=== PATIENT | male | born 1965 | race Caucasian/White ===

== ENCOUNTER 2017-01-10 14:38 | Observation (INO) | payer OTHER ==
[~2017-01-10] VITALS: Ht 180.3 cm; Wt 100.8 kg
[2017-01-10] MEDS ORDERED: SODIUM CHLORIDE 0.9% 1000ML 1,000 ML IV STA (15:08)
--- NOTE | 2017-01-10 15:09 | EMERGENCY ROOM VISIT NOTE ---
History Report prepared by Niranjan: Joe Welch Under the Supervision of: Dr. Red Nixon M.D. First contact with patient: 14:54 Chief Complaint: SYNCOPE Stated Complaint: SYNCOPE/WEAKNESS History of Present Illness The patient is a 51 year old male who presents to the Emergency Room with complaints of weakness and syncope occurring prior to arrival. The patient states that he was having a little bit of alcohol, Benadryl, and Tagamet. The patient states that he hit his head when he fell. He states that he has a hive- like rash additionally all over. The patient states that this has happened before when he was playing tennis in the cold and he passed out, and had low blood pressure. He states that he currently feels light headed and he is shivering. The patient denies any abdominal pain. He states that he has a history of hypertension, and a family history of a heart attack. Source of History: patient Onset: prior to arrival Position: other (global) Quality: other (weakness and syncope) Associated Symptoms: + rash Note: Associated symptoms: Light headed and shivering Review of Systems See HPI for pertinent positives & negatives. A total of 10 systems reviewed and were otherwise negative. Past Medical & Surgical Medical Problems: (1) Hyperlipidemia (2) Hypertension (3) Hypertension (4) Syncope Surgical Problems: (1) No significant past surgical history Family History FH: heart attack Social History Marital Status: Housing Status: lives with family Occupation Status: employed Current/Historical Medications Scheduled Fenofibrate (Tricor ), 145 MG PO DAILY Hydrochlorothiazide (Hctz), 25 MG PO DAILY Lisinopril (Zestril), 5 MG PO DAILY Allergies Coded Allergies: Penicillins (Verified Allergy, Unknown, HIVES, 01/10/17) Physical Exam Vital Signs Date Time Temp Pulse Resp B/P Pulse Ox O2 Delivery O2 Flow Rate FiO2 01/10/17 19:40 81 16 109/76 100 01/10/17 17:19 86 18 104/72 99 Room Air 01/10/17 16:30 36.7 86 20 112/74 99 Room Air 01/10/17 16:28 82 01/10/17 15:40 86 18 107/77 100 Nasal Cannula 2.0 01/10/17 15:01 99 Nasal Cannula 2.0 01/10/17 14:55 98 Nasal Cannula 2.0 2/25/17 14:42 35.9 83 22 94/58 88 Room Air Physical Exam GENERAL: Patient is tired appearing and in minimal distress. HEENT: No tongue or lip swelling. No acute trauma, normocephalic atraumatic, mucous membranes moist, no nasal congestion, no scleral icterus. NECK: No stridor, no adenopathy, no meningismus, trachea is midline. LUNGS: No respiratory distress. No dyspnea. Clear to auscultation and equal bilaterally. No wheeze, no rhonchi. HEART: Regular rate and rhythm. No murmurs, rubs, gallops appreciated. ABDOMEN: Soft, nontender, bowel sounds positive, no masses appreciated, no peritonitis. BACK: No midline tenderness, no CVA tenderness EXTREMITIES: Cool distal extremities. Normal motion all extremities, no cyanosis , no edema. NEUROLOGIC: Alert and oriented, no acute motor or sensory deficits, no focal weakness, cranial nerves grossly intact. SKIN: Hives over the anterior upper chest. Medical Decision & Procedures ER Provider Diagnostic Interpretation: X ray results and stated below per my interpretation and radiologist interpretation. Other radiology results and stated below per my review and radiologist interpretation: CT HEAD WITHOUT CONTRAST (CT) CLINICAL HISTORY: 61, generalized weakness. COMPARISON STUDY: No previous studies for comparison. TECHNIQUE: Axial CT of the brain is performed from the vertex to the skull base. IV contrast was not administered for this examination. CT DOSE: 614.27 mGy.cm FINDINGS: No intra or extra-axial mass lesions are visualized. There is no CT evidence of acute cortical infarction. There is no evidence of midline shift. There is no acute hemorrhage. No calvarial fractures are visualized. There is no evidence of pathologic ventricular dilatation. There is no evidence of acute sinusitis IMPRESSION: No acute intracranial findings Electronically signed by: Rahul Maldonado M.D. 01/10/2017 3:36 PM Dictated Date/Time: 01/10/2017 3:34 PM CHEST ONE VIEW PORTABLE CLINICAL HISTORY: Generalized Weakness COMPARISON STUDY: No previous studies for comparison. FINDINGS: The cardiac and mediastinal contours are normal. There is no evidence of focal pulmonary consolidation. There is no evidence of failure. No pleural effusions are visualized.[ IMPRESSION: No active disease in the chest. Electronically signed by: Rahul Maldonado M.D. 01/10/2017 3:47 PM Dictated Date/Time: 01/10/2017 3:[address] ANGIOGRAM OF THE CHEST CLINICAL HISTORY: Atypical chest pain. SYNCOPE COMPARISON STUDY: Chest x-ray dated 01/10/2017 TECHNIQUE: Following the IV administration of 92 mL of Optiray-320, CT angiogram of the thorax was performed from the thoracic inlet to the lung bases utilizing the pulmonary embolus protocol. Images are reviewed in the axial, sagittal, and coronal planes. IV contrast was administered without complication. MIP imaging was performed. CT DOSE: 490.58 mGy.cm FINDINGS: No pathologically enlarged axillary mediastinal or hilar lymph nodes were visualized. There was no evidence of thoracic aortic dilatation. There is no evidence of thoracic aortic dissection. There were no pulmonary artery filling defects to indicate acute pulmonary embolism. No pleural effusions are visualized. There are dependent groundglass opacities likely atelectatic. There is no lobar consolidation. IMPRESSION: 1. No acute intrathoracic findings 2. No CT evidence of acute pulmonary embolism 3. No CT evidence of aortic dissection 3. No evidence of focal pulmonary consolidation Electronically signed by: Rahul Maldonado M.D. 01/10/2017 5:41 PM Dictated Date/Time: 01/10/2017 5:37 PM Laboratory Results 01/10/17 15:00 Red Blood Count 5.14, Mean Corpuscular Volume 89.3, Mean Corpuscular Hemoglobin 30.5, Mean Corpuscular Hemoglobin Concent 34.2, Mean Platelet Volume 12.1 01/10/17 15:00 Test 01/10/17 14:46 01/10/17 15:00 01/10/17 15:10 01/10/17 15:15 Bedside Glucose 120 mg/dl (70-99) White Blood Count 5.40 K/uL (4.8-10.8) Red Blood Count 5.14 M/uL (4.7-6.1) Hemoglobin 15.7 g/dL (14.0-18.0) Hematocrit 45.9 % (42-52) Mean Corpuscular Volume 89.3 fL (80-100) Mean Corpuscular Hemoglobin 30.5 pg (25-34) Mean Corpuscular Hemoglobin Concent 34.2 g/dl (32-36) Platelet Count 273 K/uL (130-400) Mean Platelet Volume 12.1 fL (7.4-10.4) RDW Standard Deviation 39.9 fL (36.4-46.3) RDW Coefficient of Variation 12.3 % (11.5-14.5) Neutrophils % (Manual) 20.5 % Lymphocytes % (Manual) 28.6 % Variant Lymphocytes % (manual) 44.6 % Monocytes % (Manual) 6.3 % Neutrophils # (Manual) 1.11 K/uL (1.4-6.5) Total Absolute Neutrophils 1.11 K/uL (1.4-6.5) Lymphocytes # (Manual) 1.54 K/uL (1.2-3.4) Absolute Variant Lymphocytes 2.41 K/uL Total Absolute Lymphocytes 3.95 K/uL (1.2-3.4) Monocytes # (Manual) 0.34 K/uL (0.11-0.59) Red Blood Cell Morphology Unremarkable Anion Gap 19.0 mmol/L (3-11) Est Creatinine Clear Calc Drug Dose 66.7 ml/min Estimated GFR () 57.4 Estimated GFR (Non- 49.5 BUN/Creatinine Ratio 12.3 (10-20) Calcium Level 8.7 mg/dl (8.5-10.1) Phosphorus Level 4.7 mg/dl (2.5-4.9) Magnesium Level 2.1 mg/dl (1.8-2.4) Total Bilirubin 0.2 mg/dl (0.2-1) Direct Bilirubin mg/dl (0-0.2) Aspartate Amino Transf (AST/SGOT) 25 U/L (15-37) Alanine Aminotransferase (ALT/SGPT) 53 U/L (12-78) Alkaline Phosphatase 34 U/L (45-117) Total Creatine Kinase 89 U/L (39-308) Creatine Kinase MB 0.8 ng/ml (0.5-3.6) Creatine Kinase MB Ratio 0.9 (0-3.0) Troponin I < 0.015 ng/ml (0-0.045) Total Protein 6.8 gm/dl (6.4-8.2) Albumin 3.5 gm/dl (3.4-5.0) Lipase 272 U/L (73-393) Thyroid Stimulating Hormone (TSH) 11.500 uIu/ml (0.300-4.500) Free Thyroxine 1.14 ng/dl (0.80-1.60) Chemistry Specimen Hemolysis Ethyl Alcohol mg/dL 10.0 mg/dl (0-3) Urine Color YELLOW Urine Appearance CLEAR (CLEAR) Urine pH 5.0 (4.5-7.5) Urine Specific [place] 1.011 (1.000-1.030) Urine Protein 1+ (NEG) Urine Glucose (UA) NEG (NEG) Urine Ketones NEG (NEG) Urine Occult Blood NEG (NEG) Urine Nitrite NEG (NEG) Urine Bilirubin NEG (NEG) Urine Urobilinogen NEG (NEG) Urine Leukocyte Esterase NEG (NEG) Urine WBC (Auto) 1-5 /hpf (0-5) Urine RBC (Auto) 0-4 /hpf (0-4) Urine Hyaline Casts (Auto) 10-30 /lpf (0-5) Urine Epithelial Cells (Auto) 10-20 /lpf (0-5) Urine Bacteria (Auto) NEG (NEG) Urine Pathogenic Casts /lpf (0) Test 01/10/17 17:15 01/10/17 18:17 Bedside D-Dimer > 450 ng/mlFEU (0-450) Bedside Troponin I 0.040 ng/ml (0-0.045) Laboratory results as reviewed by me. Medications Administered Medications (Trade) Dose Ordered Sig/Bill Route Start Time Stop Time Status Last Admin Dose Admin Sodium Chloride (Nss 1000ml) 1,000 ml @ 999 mls/hr Q1H1M STAT IV 01/10/17 15:08 01/10/17 16:08 DC 01/10/17 15:19 999 MLS/HR ECG Indication: syncope Rate (beats per minute): 78 Findings: no acute ischemic change, no ectopy ED Course 1454: The patient was evaluated in room C9. A complete history and physical exam was performed. 1508: Sodium Chloride 1000 ml @ 999 mls/hr IV 1532: I reevaluated the patient, and he was feeling better, but his oxygen dropped to 88% 1638: I reevaluated the patient, and said that he is feeling much better. His oxygen saturation is at 98% on room air. His temperature has gone up. His blood pressure is back to normal. 1830: Reevaluated the patient. Discussed results and discharge instructions: He verbalized understanding and agreement. The patient is ready for discharge. Medical Decision Differential: Sepsis, Infectious (UTI/Pneumonia/Meningitis/etc), Metabolic/ Electrolyte Abnormality, Cardiac, Hepatic, Endocrine, Toxicologic, Neurologic, amongst other pathologies entertained. 51 yr old pleasant male arrives following syncope while walking downtown. Admits few beers earlier though not intoxicated by exam. Initially hypotensive , hypoxic, and hypothermic. With all this no clear indication this is sepsis, especially as he notes this has happened previously without clear cause. Does note previous cardiac rule out, though no stress testing nor cath. Minimal risk factors for CAD other than his father was 39 when he passed. He was already feeling better on arrival. Initial EKG in field clearly showing lateral depressions which resolved on arrival. Given fluids and bear hugger and BP, O2 sats both improved. He is stable, no distress and breathing comfortably. Has much better color to face than on arrival as well. Initial Trop negative and had normal EKG. Dimer quite elevated of uncertain etiology, but given all of this CT PE done which was negative as well. Repeat trop done which returned at 0.04, just within normal range, but clearly elevated from the Zero it had been on arrival. This along is indication for bringing in, especially when coupled with initial EKG depressions and syncope. I did send TSH which was elevated and may be some of reason he has issues with going in to cold though seems difficult to believe that would cause such a dramatic event like today. Bring in to hospitalist service for further evaluation and treatment. Given no current chest pain, normal EKG, and trop not severely elevated, I feel that automatically starting heparin would not be indicated. He has no headache, neck pain, nor neuro deficits and with normal CT head on arrival so short after syncope I do not feel that LP is indicated. Impression Primary Impression: Syncope Additional Impressions: EKG abnormality ST segment depression Troponin level elevated Scribe Attestation The scribe's documentation has been prepared under my direction and personally reviewed by me in its entirety. I confirm that the note above accurately reflects all work, treatment, procedures, and medical decision making performed by me. Departure Information Dispostion Home / Self-Care Patient Instructions My [facility] Problem Qualifiers Primary Impression: Syncope Syncope type: unspecified Qualified Codes: R55 - Syncope and collapse
[2017-01-10] MEDS ORDERED: FENO145T26 PO (15:15)
[2017-01-10] MEDS ORDERED: LISI-729 PO (15:15)
[2017-01-10] MEDS ORDERED: HYDR25TA4 PO (15:15)
[2017-01-10 15:30] LABS: HEMATOCRIT 45.9 % (42-52); MEAN CELL VOLUME 89.3 fL (80-100); MEAN CORPUSCULAR HEMOGLOBIN 30.5 pg (25-34); MEAN CORPUSCULAR HGB CONC 34.2 g/dl (32-36); MEAN PLATELET VOLUME 12.1 fL (7.4-10.4); PLATELET COUNT 273 K/uL (130-400); RED BLOOD COUNT 5.14 M/uL (4.7-6.1)
[2017-01-10 15:33] LABS: URINE APPEARANCE CLEAR (CLEAR); URINE BILIRUBIN NEG (NEG); URINE COLOR YELLOW; URINE NITRITE NEG (NEG); URINE SPECIFIC GRAVITY 1.011 (1.000-1.030); UROBILINOGEN NEG (NEG); ZZUR CULT IF INDIC CLEAN CATCH NO
[2017-01-10 15:37] LABS: REVIEW REQ? YES
[2017-01-10 15:38] LABS: MANUAL MICROSCOPIC REQUIRED? NO
--- NOTE | 2017-01-10 15:38 | DIAGNOSTIC IMAGING REPORT ---
CT HEAD WITHOUT CONTRAST (CT) CLINICAL HISTORY: 61, generalized weakness. COMPARISON STUDY: No previous studies for comparison. TECHNIQUE: Axial CT of the brain is performed from the vertex to the skull base. IV contrast was not administered for this examination. CT DOSE: 614.27 mGy.cm FINDINGS: No intra or extra-axial mass lesions are visualized. There is no CT evidence of acute cortical infarction. There is no evidence of midline shift. There is no acute hemorrhage. No calvarial fractures are visualized. There is no evidence of pathologic ventricular dilatation. There is no evidence of acute sinusitis IMPRESSION: No acute intracranial findings Electronically signed by: Rahul Maldonado M.D. 01/10/2017 3:36 PM Dictated Date/Time: 01/10/2017 3:34 PM
--- NOTE | 2017-01-10 15:49 | DIAGNOSTIC IMAGING REPORT ---
CHEST ONE VIEW PORTABLE CLINICAL HISTORY: Generalized Weakness COMPARISON STUDY: No previous studies for comparison. FINDINGS: The cardiac and mediastinal contours are normal. There is no evidence of focal pulmonary consolidation. There is no evidence of failure. No pleural effusions are visualized.[ IMPRESSION: No active disease in the chest. Electronically signed by: Rahul Maldonado M.D. 01/10/2017 3:47 PM Dictated Date/Time: 01/10/2017 3:47 PM
[2017-01-10 16:00] LABS: ALKALINE PHOSPHATASE 34 U/L (45-117); ALT/SGPT 53 U/L (12-78); AST/SGOT 25 U/L (15-37); BLOOD UREA NITROGEN 20 mg/dl (7-18); BUN/CREATININE RATIO 12.3 (10-20); CALCIUM 8.7 mg/dl (8.5-10.1); CARBON DIOXIDE 20 mmol/L (21-32); CHLORIDE 104 mmol/L (98-107); CKMB/CK RATIO 0.9 (0-3.0); GLUCOSE 121 mg/dl (70-99); MAGNESIUM 2.1 mg/dl (1.8-2.4); PHOSPHORUS 4.7 mg/dl (2.5-4.9); POTASSIUM 3.2 mmol/L (3.5-5.1); SODIUM 143 mmol/L (136-145)
[2017-01-10 16:10] LABS: COMPLETE YES; LYMPH ABS # 1.54 K/uL (1.2-3.4); LYMPHOCYTE % 28.6 %; NEUTROPHILS % 20.5 %; VARIANT LYM ABS # 2.41 K/uL; VARIANT LYMPHOCYTE % 44.6 %
[2017-01-10] MEDS ORDERED: OPTIRAY 320 IV PRN (17:30)
--- NOTE | 2017-01-10 17:42 | DIAGNOSTIC IMAGING REPORT ---
CT ANGIOGRAM OF THE CHEST CLINICAL HISTORY: Atypical chest pain. SYNCOPE COMPARISON STUDY: Chest x-ray dated 01/10/2017 TECHNIQUE: Following the IV administration of 92 mL of Optiray-320, CT angiogram of the thorax was performed from the thoracic inlet to the lung bases utilizing the pulmonary embolus protocol. Images are reviewed in the axial, sagittal, and coronal planes. IV contrast was administered without complication. MIP imaging was performed. CT DOSE: 490.58 mGy.cm FINDINGS: No pathologically enlarged axillary mediastinal or hilar lymph nodes were visualized. There was no evidence of thoracic aortic dilatation. There is no evidence of thoracic aortic dissection. There were no pulmonary artery filling defects to indicate acute pulmonary embolism. No pleural effusions are visualized. There are dependent groundglass opacities likely atelectatic. There is no lobar consolidation. IMPRESSION: 1. No acute intrathoracic findings 2. No CT evidence of acute pulmonary embolism 3. No CT evidence of aortic dissection 3. No evidence of focal pulmonary consolidation Electronically signed by: Rahlu Maldonado M.D. 01/10/2017 5:41 PM Dictated Date/Time: 01/10/2017 5:37 PM
[2017-01-10] MEDS ORDERED: POTASSIUM CHLORIDE 10 MEQ TABCR PO STA ×2 (19:26→20:04)
[2017-01-10] MEDS ORDERED: ONDANSETRON INJ 2 MG/ML 2 ML VIAL IV PRN (19:30)
[2017-01-10] MEDS ORDERED: ACETAMINOPHEN 325 MG TAB PO PRN (19:30)
[2017-01-10] MEDS ORDERED: IV FLUIDS COMPLETED PRN (19:45)
[2017-01-10 20:00] VITALS: BP 129/76; PULSE 106; TEMP 36.9; O2SAT 96; Ht 180.3 cm; Wt 100.8 kg
[2017-01-10] MEDS ORDERED: ASPIRIN 81 MG CHEW PO STA (20:21)
--- NOTE | 2017-01-10 20:21 | History and Physical ---
History & Physical Date & Time of Service: Jan 10, 2017 at 19:34 Chief Complaint: Syncope/Weakness Primary Care Physician: No Doctor, Assigned History of Present Illness Source: patient, spouse ( at bedside who is a physician), other (unable to view clinic records as patient's PCP is in [facility]) This is a 51 year old male with PMH of hypertension and hyperlipidemia who presents to the ED s/p syncopal episode. Patient is visiting from [facility] and was walking outside in [place] in the cold weather and began to develop hives which started on his low back with associated itching. He took Benadryl and Tagamet around noon. He then began to feel dizzy/ presyncopal so leaned against a wall. The last thing he remembers is stepping forward then he awoke on the ground with police officers and his family surrounding him. He reports being alert/ oriented when he awoke. No seizure like activity reported. He is unsure how long he was down. He sustained a small abrasion on his left mosque. 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 He took his usual HCTZ 25 mg and lisinopril 5 mg this morning. He ate normally today and had 2 beers with lunch. He had a transient R calf cramp today while getting on bed for imaging. He is now feeling asymptomatic. Dizziness and hives are resolved. He denies recent illness, chest pain, SOB, ADAME , palpitations, abdominal pain, vomiting, diarrhea, urinary changes, edema, weight change, VALADEZ, focal weakness or numbness. Patient had a prior syncopal episode approximately 8 years ago with similar presentation when he was outdoors playing tennis in cold weather. At that time he was hospitalized in [facility] and had workup of telemetry monitoring and serial cardiac enzymes which were unremarkable as per his . states he gets hives associated with exposure to cold weather approximately once per year but last syncope was 8 years ago. He denies known history of arrhythmia, CAD, valvular disease, CHF, thyroid disease, DM. Pt has not had an echo or stress test in the past. On presentation BP was borderline in 90s systolic which improved to 120s after 1 liter bolus. Pt was hypothermic and hypoxic on arrival which resolved and is now saturating well on RA. Past Medical/Surgical History Medical Problems: (1) Hyperlipidemia Status: Chronic (2) Hypertension Status: Chronic Surgical Problems: (1) No significant past surgical history Status: Chronic Family History FH: heart attack FATHER (fatal [place] age 39) FHx: SVT (supraventricular tachycardia) SISTER Social History Lives in [facility]. Smoking Status: Never Smoker Alcohol Use: had 2 beers with lunch today Marital Status: Housing status: lives with family Occupational Status: employed Allergies Coded Allergies: Penicillins (Verified Allergy, Unknown, HIVES, 01/10/17) Home Medications Scheduled Fenofibrate (Tricor ), 145 MG PO DAILY Hydrochlorothiazide (Hctz), 25 MG PO DAILY Lisinopril (Zestril), 5 MG PO DAILY Review of Systems Constitutional: No chills, No fever Eyes: No worsening of vision ENT: No nasal symptoms Respiratory: No cough, No dyspnea on exertion, No shortness of breath Cardiovascular: No chest pain, No edema, No palpitations Abdomen: + nausea (resolved) Musculoskeletal: + calf pain (transient R calf cramp while getting on bed for imaging) Genitourinary - Male: No dysuria, No urinary frequency, No urinary urgency Neurologic: No numbness/tingling, No weakness Integumentary: + itch, + rash (see HPI) Allergic / Immunologic: + hives, No food allergies, No problem reported (no new food exposure or new soap/ detergent) Physical Exam Vital Signs Date Time Temp Pulse Resp B/P Pulse Ox O2 Delivery O2 Flow Rate FiO2 01/10/17 17:19 86 18 104/72 99 Room Air 01/10/17 16:30 36.7 86 20 112/74 99 Room Air 01/10/17 16:28 82 01/10/17 15:40 86 18 107/77 100 Nasal Cannula 2.0 01/10/17 15:01 99 Nasal Cannula 2.0 01/10/17 14:55 98 Nasal Cannula 2.0 01/10/17 14:42 35.9 83 22 94/58 88 Room Air General Appearance: WD/WN, no apparent distress, + pertinent finding (pleasant alert 51 y/o male, no distress, at bedside) Head: normocephalic, + pertinent finding (small abrasion left mosque) Eyes: normal inspection, PERRL, EOMI ENT: hearing grossly normal, pharynx normal Neck: supple, no carotid bruits, trachea midline Respiratory/Chest: lungs clear, normal breath sounds, no respiratory distress, no accessory muscle use Cardiovascular: regular rate, rhythm, no murmur, + pertinent finding (radial pulses 2+) Abdomen/GI: normal bowel sounds, non tender, soft Extremities/Musculoskelatal: no calf tenderness, no pedal edema 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, alert, normal mood/affect, oriented x 3, + pertinent finding (no gross motor deficit) Skin: normal color, warm/dry, no rash, + pertinent finding (small abrasion left mosque) Diagnostics Laboratory Results Results Past 24 Hours Test 01/10/17 14:46 01/10/17 15:00 01/10/17 15:10 01/10/17 15:15 Range/Units Bedside Glucose 120 70-99 mg/dl White Blood Count 5.40 4.8-10.8 K/uL Red Blood Count 5.14 4.7-6.1 M/uL Hemoglobin 15.7 14.0-18.0 g/dL Hematocrit 45.9 42-52 % Mean Corpuscular Volume 89.3 80-100 fL Mean Corpuscular Hemoglobin 30.5 25-34 pg Mean Corpuscular Hemoglobin Concent 34.2 32-36 g/dl Platelet Count 273 130-400 K/uL Mean Platelet Volume 12.1 7.4-10.4 fL RDW Standard Deviation 39.9 36.4-46.3 fL RDW Coefficient of Variation 12.3 11.5-14.5 % Neutrophils % (Manual) 20.5 % Lymphocytes % (Manual) 28.6 % Variant Lymphocytes % (manual) 44.6 % Monocytes % (Manual) 6.3 % Neutrophils # (Manual) 1.11 1.4-6.5 K/uL Total Absolute Neutrophils 1.11 1.4-6.5 K/uL Lymphocytes # (Manual) 1.54 1.2-3.4 K/uL Absolute Variant Lymphocytes 2.41 K/uL Total Absolute Lymphocytes 3.95 1.2-3.4 K/uL Monocytes # (Manual) 0.34 0.11-0.59 K/uL Red Blood Cell Morphology Unremarkable Sodium Level 143 136-145 mmol/L Potassium Level 3.2 3.5-5.1 mmol/L Chloride Level 104 98-107 mmol/L Carbon Dioxide Level 20 21-32 mmol/L Anion Gap 19.0 3-11 mmol/L Blood Urea Nitrogen 20 7-18 mg/dl Creatinine 1.60 0.60-1.40 mg/dl Est Creatinine Clear Calc Drug Dose 66.7 ml/min Estimated GFR () 57.4 Estimated GFR (Non- 49.5 BUN/Creatinine Ratio 12.3 10-20 Random Glucose 121 70-99 mg/dl Calcium Level 8.7 8.5-10.1 mg/dl Phosphorus Level 4.7 2.5-4.9 mg/dl Magnesium Level 2.1 1.8-2.4 mg/dl Total Bilirubin 0.2 0.2-1 mg/dl Direct Bilirubin 0-0.2 mg/dl Aspartate Amino Transf (AST/SGOT) 25 15-37 U/L Alanine Aminotransferase (ALT/SGPT) 53 12-78 U/L Alkaline Phosphatase 34 45-117 U/L Total Creatine Kinase 89 39-308 U/L Creatine Kinase MB 0.8 0.5-3.6 ng/ml Creatine Kinase MB Ratio 0.9 0-3.0 Troponin I < 0.015 0-0.045 ng/ml Total Protein 6.8 6.4-8.2 gm/dl Albumin 3.5 3.4-5.0 gm/dl Lipase 272 73-393 U/L Thyroid Stimulating Hormone (TSH) 11.500 0.300-4.500 uIu/ml Free Thyroxine 1.14 0.80-1.60 ng/dl Chemistry Specimen Hemolysis Ethyl Alcohol mg/dL 10.0 0-3 mg/dl Urine Color YELLOW Urine Appearance CLEAR CLEAR Urine pH 5.0 4.5-7.5 Urine Specific [place] 1.011 1.000-1.030 Urine Protein 1+ NEG Urine Glucose (UA) NEG NEG Urine Ketones NEG NEG Urine Occult Blood NEG NEG Urine Nitrite NEG NEG Urine Bilirubin NEG NEG Urine Urobilinogen NEG NEG Urine Leukocyte Esterase NEG NEG Urine WBC (Auto) 1-5 0-5 /hpf Urine RBC (Auto) 0-4 0-4 /hpf Urine Hyaline Casts (Auto) 10-30 0-5 /lpf Urine Epithelial Cells (Auto) 10-20 0-5 /lpf Urine Bacteria (Auto) NEG NEG Urine Pathogenic Casts 0 /lpf Test 01/10/17 17:15 01/10/17 18:17 Range/Units Bedside D-Dimer > 450 0-450 ng/mlFEU Bedside Troponin I 0.040 0-0.045 ng/ml Diagnostic Radiology CT HEAD WITHOUT CONTRAST (CT) CLINICAL HISTORY: 61, generalized weakness. COMPARISON STUDY: No previous studies for comparison. TECHNIQUE: Axial CT of the brain is performed from the vertex to the skull base. IV contrast was not administered for this examination. CT DOSE: 614.27 mGy.cm FINDINGS: No intra or extra-axial mass lesions are visualized. There is no CT evidence of acute cortical infarction. There is no evidence of midline shift. There is no acute hemorrhage. No calvarial fractures are visualized. There is no evidence of pathologic ventricular dilatation. There is no evidence of acute sinusitis IMPRESSION: No acute intracranial findings CHEST ONE VIEW PORTABLE CLINICAL HISTORY: Generalized Weakness COMPARISON STUDY: No previous studies for comparison. FINDINGS: The cardiac and mediastinal contours are normal. There is no evidence of focal pulmonary consolidation. There is no evidence of failure. No pleural effusions are visualized.[ IMPRESSION: No active disease in the chest. CT ANGIOGRAM OF THE CHEST CLINICAL HISTORY: Atypical chest pain. SYNCOPE COMPARISON STUDY: Chest x-ray dated 01/10/2017 TECHNIQUE: Following the IV administration of 92 mL of Optiray-320, CT angiogram of the thorax was performed from the thoracic inlet to the lung bases utilizing the pulmonary embolus protocol. Images are reviewed in the axial, sagittal, and coronal planes. IV contrast was administered without complication. MIP imaging was performed. CT DOSE: 490.58 mGy.cm FINDINGS: No pathologically enlarged axillary mediastinal or hilar lymph nodes were visualized. There was no evidence of thoracic aortic dilatation. There is no evidence of thoracic aortic dissection. There were no pulmonary artery filling defects to indicate acute pulmonary embolism. No pleural effusions are visualized. There are dependent groundglass opacities likely atelectatic. There is no lobar consolidation. IMPRESSION: 1. No acute intrathoracic findings 2. No CT evidence of acute pulmonary embolism 3. No CT evidence of aortic dissection 3. 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 at 14:18- sinus tachycardia rate 102, ST depression in V3-V6, T wave inversion in III and aVF EKG in ER- NSR, 78 bpm, T wave flattening in III and aVF, no ST abnormality Impression Assessment and Plan SYNCOPE CT head unremarkable; CXR unremarkable; elevated d dimer -> CTA chest neg for PE or dissection Rule out ACS- Risk factors include HTN, dyslipidemia, positive family hx ( father of NE age 38) 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 ST 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 in lateral leads; resolved on EKG in ER Initial troponin <0.015; repeat POC troponin 0.04 Trend serial cardiac enzymes No prior echo or stress test- will check echo in am Monitor in telemetry to r/o arrhythmia Give ASA 324 mg chewable now and 81 mg qam Atorvastatin 80 mg PO x 1 Lipid panel in am Consult cardiology HYPOKALEMIA Replace and recheck in am PROBABLE PINA Cr is 1.6; no baseline creatinine available Continue IVF's Hold HTZ and lisinopril Reassess renal function in am HYPERTENSION BP borderline in 90s on arrival to ER; improved to 120s systolic after 1 liter IVF's Hold HCTZ and lisinopril Monitor DYSLIPIDEMIA Continue Tricor Check fasting lipid panel in am ELEVATED TSH TSH 11.5 Free T4 is normal DVT PROPHYLAXIS Lovenox SQ DISPOSITION Obs to telemetry Follows with a PCP in [place] area Discussed with at bedside who is a physician Requests to be discharged early in the day tomorrow if workup is unremarkable Patient seen in collaboration with Dr. Johns. Please see her addendum. ADDENDUM: I have seen and examined the patient and agree with the assessment and plan as stated above. The patient has a history of cold-induced urticaria preceding a syncopal episode in the past. He felt the onset of symptoms including lightheadedness prior to losing consciousness today, making a cardiac arrythmia less likely. From a cardiac standpoint, however, there is concern as his father in his 30s from an NE and his pre-hospital EKG revealed some ST depressions in the lateral leads which then resolved when the pt was in the ER and his temp came up. He denies ever having a specialty workup for the urticaria in the past. I would highly recommend followup with an Allergy/ Immuology specialist to learn more about his condition as an outpatient, as things like swimming and future surgeries may be an issue for him. Also, he has not demonstrated any symptoms consistent with anaphylaxis, however, an epi pen might not be a bad thing to carry on his person in a pinch. An associate marketing manager can provide this and teach him when and how to use this. For this episode today , he had been out in the changing colder weather for several hours walking on the campus outside and was not appropriately dressed for the weather, he had a couple of beers with lunch, there is the stress of his son going off to college to consider, he had just taken a Benadryl, and his TSH is slightly elevated which may be playing a role here or contributing to problems. The urticaria alone may have caused the syncope from the mast cell-induced vasodilation, however, then he had these other contributing factors playing a role. After being rewarmed in the ER, getting some IVF and food he is feeling better. Will trend enzymes, get echo in am and have cards evaluate him. Recommend PCP to follow-up on TSH as outpatient and referral to Allergy/salon customer experience specialist for further workup. Miriam Johns, DO Hospitalist Level of Care Telemetry Resuscitation Status FULL RESUSCITATION VTE Prophylaxis VTE Risk Assessment Done? Y/N: Yes Risk Level: Moderate Given or contraindicated: Enoxaparin (Lovenox)SQ Social Service Consult None Apply
[2017-01-10] MEDS ORDERED: ATORVASTATIN 40 MG TAB PO STA (20:37)
[2017-01-10] MEDS: SODIUM CHLORIDE 0.9% 1000ML 1,000 ML IV SCH (21:09)
[2017-01-10 21:59] LABS: PROTHROMBIN TIME (PATIENT) 10.9 SECONDS (9.0-12.0)
[2017-01-10 22:20] LABS: CKMB/CK RATIO 1.9 (0-3.0)
[2017-01-10 23:39] VITALS: BP 107/70; PULSE 74; TEMP 36.8; O2SAT 95
[2017-01-11] MEDS ORDERED: POTASSIUM CHLORIDE 10 MEQ TABCR PO ONE
[2017-01-11 03:19] LABS: BUN/CREATININE RATIO 13.8 (10-20); CALCIUM 8.1 mg/dl (8.5-10.1); CREATININE 1.4 mg/dl (0.60-1.40); MAGNESIUM 1.8 mg/dl (1.8-2.4); POTASSIUM 4.2 mmol/L (3.5-5.1)
[2017-01-11 03:24] LABS: CKMB/CK RATIO 1.1 (0-3.0)
[2017-01-11 03:27] VITALS: BP 136/75; PULSE 72; TEMP 36.7; O2SAT 98
[2017-01-11] MEDS: SODIUM CHLORIDE 0.9% 1000ML 1,000 ML IV SCH (06:41)
[2017-01-11 07:55] VITALS: BP 123/76; PULSE 78; TEMP 36.7; O2SAT 98
[2017-01-11] MEDS ORDERED: ENOXAPARIN 40 MG/0.4 ML SYR SC SCH (09:00)
[2017-01-11] MEDS ORDERED: FENOFIBRATE 145 MG TAB PO SCH (09:00)
[2017-01-11] MEDS ORDERED: ASPIRIN 81 MG ECTAB PO SCH (09:00)
--- NOTE | 2017-01-11 10:50 | CARDIOLOGY CONSULTATION ---
DATE OF CONSULTATION: 01/11/2017 REFERRING PHYSICIAN: Dr. Miriam Johns. REASON FOR CONSULTATION: Syncope. CHIEF COMPLAINT ON ADMISSION: Syncope. HISTORY OF PRESENT ILLNESS: Mr. Benton is a pleasant 51-year-old gentleman who presented to the Emergency Department after a syncopal episode. The patient had been touring to [place] with his son, who is here for a visit. His son is likely going to attend [facility] [employer] in the fall. It was cold and raining. The patient carries a history of cold urticaria. He developed hives, which became extensive. He had approximately 5 blocks to go prior to arriving at his hotel and sent his son ahead of him. He sat down on a bench and passed out. He awoke in the presence of 2 police officers and his son. They stated he was unconscious for approximately 5 minutes. Son reported that his father's breathing was shallow, although he is not present at the bedside currently. The patient was brought to the Emergency Department. He was noted to be hypothermic and hypotensive. Initial ECG performed by EMS demonstrated sinus tachycardia with inferolateral ST-T wave changes. At that time, the patient was hypotensive and hypothermic. His troponins are not significantly elevated. The patient denies any associated chest discomfort or palpitations. No recent shortness of breath or exertional chest pain. He is quite active on a regular basis and exercising regularly. No change in functional capacity. Family history significant noted below. There are no dysrhythmias on telemetry overnight. After rewarming and hydration, his ECG is within normal limits. The patient reports an episode of syncope approximately 8 years ago, which occurred in the setting of activity, sweating and cold weather. Over the past 9 years, he has experienced approximately 10 episodes of cold-induced urticaria. He notes that if he does not return to a warm environment, he develops near syncopal symptoms as well as lightheadedness. He has been able to avoid syncope over the past 9 years by discontinuing his activity in the cold weather. No personal history of coronary artery disease, congestive heart failure, dysrhythmia, rheumatic fever as a child, or diabetes. REVIEW OF SYSTEMS: The pertinent positive noted above, a comprehensive 10-system review is otherwise negative. PAST MEDICAL HISTORY: 1. Hypertension. 2. Hypertriglyceridemia. 3. Syncope. 4. Cold urticaria. PAST SURGICAL HISTORY: No past surgical history. FAMILY HISTORY: Notable for father with myocardial infarction at age 39. SOCIAL HISTORY: He is and lives with his family. He is employed. He is a lifelong nonsmoker. ALLERGIES: LISTED TO PENICILLIN. OUTPATIENT MEDICATIONS: 1. Tricor 145 mg daily. 2. Hydrochlorothiazide 25 mg daily. 3. Lisinopril 5 mg daily. ECG ON ADMISSION: Sinus rhythm within normal limits. Repeat ECG performed this morning demonstrates sinus rhythm, isolated PVC, otherwise within normal limits. Resting 2D transthoracic echo, preliminary review: Normal left ventricular systolic function, normal wall motion, and no significant valvular disease. LABORATORY DATA: Alcohol level 10.0. White blood cell count 5.40, hemoglobin is 15.7, and platelet count 273. Sodium 145, potassium 4.2, chloride 108, CO2 is 30, BUN is 19, creatinine is 1.40, and calcium is 8.1. Initial troponin less than 0.015, repeat troponin 0.040, and repeat third troponin is 0.03. His CK and CK-MB are within normal limits. Chest x-ray is within normal limits. CT angiogram of the chest is negative for pulmonary embolus, dissection, or pulmonary consolidation. CT of the head: No acute intracranial findings. PHYSICAL EXAMINATION: VITAL SIGNS: Temperature is 36.7 degrees centigrade, pulse 70 beats per minute and regular, respiratory rate is 20 breaths per minute, blood pressure 123/76, and his SaO2 is 98% on room air. GENERAL: NAD, awake, alert and oriented x3. THROAT: His mucous membranes are moist. There is no scleral icterus. Conjunctivae are pink. NECK: Supple. There is no JVD, no HJR, and no carotid bruit. HEART: Regular with a normal S1 and S2. There is no murmur, rub, or gallop. LUNGS: Clear without rales, rhonchi or wheeze. ABDOMEN: Soft and nontender. There is no rebound or guarding. Normal bowel sounds. EXTREMITIES: Warm and dry. There is no clubbing, cyanosis, or edema. NEUROLOGIC: Demonstrates no focal motor deficit. FINAL IMPRESSION: 1. A 51-year-old male presents with episode of syncope likely related to cold urticaria and mast cell degranulation inducing vasodilation. No other signs or symptoms of anaphylaxis. 2. Abnormal ECG in the field demonstrates sinus tachycardia with inferolateral ST-T wave changes, likely secondary to hypotension and hypothermia in the setting of syncope. Troponins are not significantly elevated. The patient's resting 2D transthoracic echo was essentially within normal limits. No history of exertional angina. 3. Hypertension -- controlled. 4. Elevated D-dimer with negative CT angiogram of the chest. PLAN AND RECOMMENDATIONS: I had a long discussion with the patient regarding his syncopal episode as well as long history of cold urticaria as well as syncope related to cold urticaria in the past. Given his family history of premature coronary artery disease and transient ECG changes, recommend exercise stress echocardiography for further risk stratification. I offer to perform the exercise stress test today prior to discharge; however, the patient prefers to follow up with his family physician in the [place] region and have stress testing performed in his hometown. He will continue Tricor and lisinopril at this time. Recommend he hold hydrochlorothiazide until he follows up with his family physician. Recommend he continue aspirin at this time as well. The patient is agreeable. Thank you for allowing me to take part in the care of your patient. JAY
[2017-01-11 12:11] VITALS: BP 123/79; PULSE 86; TEMP 36.9; O2SAT 99
--- NOTE | 2017-01-11 12:56 | Progress Note ---
Internal Med Progress Note Date of Service: Jan 11, 2017. Provider Documentation: SUBJECTIVE: Patient is doing well and eager to be discharged. Per , they need to be out of here within 20 minutes -SOURAV No chest pain, SOB, nausea, vomiting, dizziness, palpitations, diarrhea, abdominal pain, fever, chills OBJECTIVE: Vital Signs-as noted below Exam: General-AAOX 3, no distress Eyes-PERRLA, NO icterus Neck-Supple, No JVD Lungs-AEBE, no wheezing, rhonchi Heart-S1, S2 normal, No murmurs Abdomen-Soft, non tender, non d istended, bs present Extremities-No edema Neuro-AAOX3, No focal deficits Lab data as noted below. Diagnostic Radiology CT HEAD WITHOUT CONTRAST (CT) CLINICAL HISTORY: 61, generalized weakness. COMPARISON STUDY: No previous studies for comparison. TECHNIQUE: Axial CT of the brain is performed from the vertex to the skull base. IV contrast was not administered for this examination. CT DOSE: 614.27 mGy.cm FINDINGS: No intra or extra-axial mass lesions are visualized. There is no CT evidence of acute cortical infarction. There is no evidence of midline shift. There is no acute hemorrhage. No calvarial fractures are visualized. There is no evidence of pathologic ventricular dilatation. There is no evidence of acute sinusitis IMPRESSION: No acute intracranial findings CHEST ONE VIEW PORTABLE CLINICAL HISTORY: Generalized Weakness COMPARISON STUDY: No previous studies for comparison. FINDINGS: The cardiac and mediastinal contours are normal. There is no evidence of focal pulmonary consolidation. There is no evidence of failure. No pleural effusions are visualized.[ IMPRESSION: No active disease in the chest. CT ANGIOGRAM OF THE CHEST CLINICAL HISTORY: Atypical chest pain. SYNCOPE COMPARISON STUDY: Chest x-ray dated 01/10/2017 TECHNIQUE: Following the IV administration of 92 mL of Optiray-320, CT angiogram of the thorax was performed from the thoracic inlet to the lung bases utilizing the pulmonary embolus protocol. Images are reviewed in the axial, sagittal, and coronal planes. IV contrast was administered without complication. MIP imaging was performed. CT DOSE: 490.58 mGy.cm FINDINGS: No pathologically enlarged axillary mediastinal or hilar lymph nodes were visualized. There was no evidence of thoracic aortic dilatation. There is no evidence of thoracic aortic dissection. There were no pulmonary artery filling defects to indicate acute pulmonary embolism. No pleural effusions are visualized. There are dependent groundglass opacities likely atelectatic. There is no lobar consolidation. IMPRESSION: 1. No acute intrathoracic findings 2. No CT evidence of acute pulmonary embolism 3. No CT evidence of aortic dissection 3. No evidence of focal pulmonary consolidation EKG EKG CLINICAL FELLOW at 14:11- sinus tachycardia rate 115 bpm, ST depression in V3-V6, T wave inversion in III and aVF EKG CLINICAL FELLOW at 14:18- sinus tachycardia rate 102, ST depression in V3-V6, T wave inversion in III and aVF EKG in ER- NSR, 78 bpm, T wave flattening in III and aVF, no ST abnormality ASSESSMENT & PLAN: Assessment and Plan SYNCOPE RELATED TO COLD URTICARIA : Hx of cold urticaria and has had multiple episodes of syncope and similar episodes in past. -Work up- CT head unremarkable; CXR unremarkable; elevated d dimer -> CTA chest neg for PE or dissection; EKG CLINICAL FELLOW showed ST 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 in Infero-lateral leads; resolved on EKG in ER; Trop x 3-neg -Continue with ASA, Hold HCTZ till sees family physician ABNORMAL EKG:Changes resolved EKG-CLINICAL FELLOW showed ST depression in Infero-lateral leads; resolved on EKG in ER; Trop x 3-neg. Likely secondary to hypotension and hypothermia noted byEMT at field Changes resolved on EKG done in ED -Echo- Normal, per cardiology. Recommends stress test outpatient given hx of premature CAD. Offered to do it inpatient, but prefers to do it at their facility in [place], [place] from where they are -Continue with ASA, Atorvastatin (home meds) -Appreciate cardiology inpus HYPOKALEMIA Replaced PROBABLE PINA -Resolved Cr is 1.6; no baseline creatinine available--> down to 1.40 S/P IVF -Hold HTZ and okay to continue lisinopril -Monitor outpatient HYPERTENSION BP borderline in 90s on arrival to ER; improved to 120s systolic after 1 liter IVF's. Now stable Hold HCTZ and continue with lisinopril Monitor outpatient DYSLIPIDEMIA Continue Tricor ELEVATED TSH TSH 11.5 Free T4 is normal Need to monitor it outpatient DVT PROPHYLAXIS Lovenox SQ DISPOSITION Obs to telemetry Follows with a PCP in [place] area Discussed with at bedside who is a physician Requesting to be discharged SOURAV as have to drive back to [place] to discharge home Vital Signs: Date Time Temp Pulse Resp B/P Pulse Ox O2 Delivery O2 Flow Rate FiO2 01/11/17 12:11 36.9 86 16 123/79 99 Room Air 01/11/17 07:55 36.7 78 20 123/76 98 Room Air 01/11/17 04:02 Room Air 01/11/17 03:27 36.7 72 18 136/75 98 Room Air 01/11/17 00:02 Room Air 01/10/17 23:39 36.8 74 20 107/70 95 Room Air 01/10/17 20:04 Room Air 01/10/17 20:00 36.9 106 16 129/76 96 Room Air 01/10/17 19:40 81 16 109/76 100 01/10/17 17:19 86 18 104/72 99 Room Air 01/10/17 16:30 36.7 86 20 112/74 99 Room Air 01/10/17 16:28 82 01/10/17 15:40 86 18 107/77 100 Nasal Cannula 2.0 01/10/17 15:01 99 Nasal Cannula 2.0 01/10/17 14:55 98 Nasal Cannula 2.0 01/10/17 14:42 35.9 83 22 94/58 88 Room Air Lab Results: Results Past 24 Hours Test 01/10/17 14:46 01/10/17 15:00 01/10/17 15:10 01/10/17 15:15 Range/Units Bedside Glucose 120 70-99 mg/dl White Blood Count 5.40 4.8-10.8 K/uL Red Blood Count 5.14 4.7-6.1 M/uL Hemoglobin 15.7 14.0-18.0 g/dL Hematocrit 45.9 42-52 % Mean Corpuscular Volume 89.3 80-100 fL Mean Corpuscular Hemoglobin 30.5 25-34 pg Mean Corpuscular Hemoglobin Concent 34.2 32-36 g/dl Platelet Count 273 130-400 K/uL Mean Platelet Volume 12.1 7.4-10.4 fL RDW Standard Deviation 39.9 36.4-46.3 fL RDW Coefficient of Variation 12.3 11.5-14.5 % Neutrophils % (Manual) 20.5 % Lymphocytes % (Manual) 28.6 % Variant Lymphocytes % (manual) 44.6 % Monocytes % (Manual) 6.3 % Neutrophils # (Manual) 1.11 1.4-6.5 K/uL Total Absolute Neutrophils 1.11 1.4-6.5 K/uL Lymphocytes # (Manual) 1.54 1.2-3.4 K/uL Absolute Variant Lymphocytes 2.41 K/uL Total Absolute Lymphocytes 3.95 1.2-3.4 K/uL Monocytes # (Manual) 0.34 0.11-0.59 K/uL Red Blood Cell Morphology Unremarkable Sodium Level 143 136-145 mmol/L Potassium Level 3.2 3.5-5.1 mmol/L Chloride Level 104 98-107 mmol/L Carbon Dioxide Level 20 21-32 mmol/L Anion Gap 19.0 3-11 mmol/L Blood Urea Nitrogen 20 7-18 mg/dl Creatinine 1.60 0.60-1.40 mg/dl Est Creatinine Clear Calc Drug Dose 66.7 ml/min Estimated GFR () 57.4 Estimated GFR (Non- 49.5 BUN/Creatinine Ratio 12.3 10-20 Random Glucose 121 70-99 mg/dl Calcium Level 8.7 8.5-10.1 mg/dl Phosphorus Level 4.7 2.5-4.9 mg/dl Magnesium Level 2.1 1.8-2.4 mg/dl Total Bilirubin 0.2 0.2-1 mg/dl Direct Bilirubin 0-0.2 mg/dl Aspartate Amino Transf (AST/SGOT) 25 15-37 U/L Alanine Aminotransferase (ALT/SGPT) 53 12-78 U/L Alkaline Phosphatase 34 45-117 U/L Total Creatine Kinase 89 39-308 U/L Creatine Kinase MB 0.8 0.5-3.6 ng/ml Creatine Kinase MB Ratio 0.9 0-3.0 Troponin I < 0.015 0-0.045 ng/ml Total Protein 6.8 6.4-8.2 gm/dl Albumin 3.5 3.4-5.0 gm/dl Lipase 272 73-393 U/L Thyroid Stimulating Hormone (TSH) 11.500 0.300-4.500 uIu/ml Free Thyroxine 1.14 0.80-1.60 ng/dl Chemistry Specimen Hemolysis Ethyl Alcohol mg/dL 10.0 0-3 mg/dl Urine Color YELLOW Urine Appearance CLEAR CLEAR Urine pH 5.0 4.5-7.5 Urine Specific [place] 1.011 1.000-1.030 Urine Protein 1+ NEG Urine Glucose (UA) NEG NEG Urine Ketones NEG NEG Urine Occult Blood NEG NEG Urine Nitrite NEG NEG Urine Bilirubin NEG NEG Urine Urobilinogen NEG NEG Urine Leukocyte Esterase NEG NEG Urine WBC (Auto) 1-5 0-5 /hpf Urine RBC (Auto) 0-4 0-4 /hpf Urine Hyaline Casts (Auto) 10-30 0-5 /lpf Urine Epithelial Cells (Auto) 10-20 0-5 /lpf Urine Bacteria (Auto) NEG NEG Urine Pathogenic Casts 0 /lpf Test 01/10/17 17:15 01/10/17 18:17 01/10/17 21:35 01/11/17 02:55 Range/Units Bedside D-Dimer > 450 0-450 ng/mlFEU Bedside Troponin I 0.040 0-0.045 ng/ml Prothrombin Time 10.9 9.0-12.0 SECONDS Prothromb Time International Ratio 1.0 0.9-1.1 Total Creatine Kinase 67 63 39-308 U/L Creatine Kinase MB 1.3 0.7 0.5-3.6 ng/ml Creatine Kinase MB Ratio 1.9 1.1 0-3.0 Troponin I 0.040 0.030 0-0.045 ng/ml Sodium Level 145 136-145 mmol/L Potassium Level 4.2 3.5-5.1 mmol/L Chloride Level 108 98-107 mmol/L Carbon Dioxide Level 30 21-32 mmol/L Anion Gap 7.0 3-11 mmol/L Blood Urea Nitrogen 19 7-18 mg/dl Creatinine 1.40 0.60-1.40 mg/dl Est Creatinine Clear Calc Drug Dose 75.1 ml/min Estimated GFR () 67.4 Estimated GFR (Non- 58.2 BUN/Creatinine Ratio 13.8 10-20 Random Glucose 102 70-99 mg/dl Calcium Level 8.1 8.5-10.1 mg/dl Magnesium Level 1.8 1.8-2.4 mg/dl Triglycerides Level 111 0-150 mg/dl Cholesterol Level 140 0-200 mg/dl HDL Cholesterol 28 mg/dl LDL Cholesterol, Calculated 90 mg/dl VLDL Cholesterol, Calculated 22 mg/dl Cholesterol/HDL Ratio 5.0
[2017-01-11] MEDS ORDERED: ASPEC81 PO (12:57)
--- NOTE | 2017-01-11 13:02 | Discharge Instructions ---
Discharge Instructions Admission Reason for Admission: Syncope Discharge Discharge Diagnosis / Problem: 1. Syncope related to Cold Urticaria Discharge Goals Goal(s): Diagnostic testing, Therapeutic intervention Activity Recommendations Activity Limitations: resume your previous activity (as tolerated) . Instructions / Follow-Up Instructions / Follow-Up MEDICATION CHANGES: 1. New medication: Aspirin 81 mg daily for Cardiovascular prophylaxis 2. Hold hydrochlorthiazide due to syncopal episode. Should re start if BP going up MONITOR OUTPATIENT: 1. BP as held HCTZ 2. TSH 11.5, Free T4- 1.14- Need to repeat in 3-4 weeks FOLLOW UP 1. Follow up with PCP in 1 week . Call for appt date/time 2. Recommend referral to [facility] for cold urticaria 3. Recommend outpatient stress test for cardiovascular risk stratification given your family cardiac history Current Hospital Diet Patient's current hospital diet: AHA Diet (Heart Healthy) Discharge Diet Recommended Diet: Regular Diet Procedures Procedures Performed: CT CHEST 1. No acute intrathoracic findings 2. No CT evidence of acute pulmonary embolism 3. No CT evidence of aortic dissection 3. No evidence of focal pulmonary consolidation CT HEAD IMPRESSION: No acute intracranial findings CXR No acute disease ECHO- Normal per cardiology (Official report pending) Lipid panel within goal -LDL 90, HDL 28 Pending Studies Studies pending at discharge: no Laboratory Results Lipid Panel Test 01/11/17 02:55 Range/Units Triglycerides Level 111 0-150 mg/dl Cholesterol Level 140 0-200 mg/dl HDL Cholesterol 28 mg/dl Cholesterol/HDL Ratio 5.0 LDL Cholesterol, Calculated 90 mg/dl Medical Emergencies . Who to Call and When: Medical Emergencies: If at any time you feel your situation is an emergency, please call 911 immediately. . Non-Emergent Contact Non-Emergency issues call your: Primary Care Provider . . "Provider Documentation" section prepared by Clarisse Gilmore. VTE Core Measure Inpt VTE Proph given/why not?: Enoxaparin (Lovenox)SQ
--- NOTE | 2017-01-11 13:04 | Discharge Summary ---
Discharge Summary Date of Service Jan 11, 2017. Discharge Summary Admission Date: Jan 10, 2017 at 18:55 Discharge Date: Jan 11, 2017 Discharge Disposition: Home Principal Diagnosis: 1. Syncope related to Cold Urticaria 2. Transient EKG changes 3. Hypokalemia 4. Elevated creatinine, probable PINA Secondary Diagnoses/Problems: 1. Hypertension 2. Hyperlipidemia Procedures: Tele monitoring CT chest CXR CT head EKG serial Serial troponin Echocardiogram IVF Consultations: Cardiology, Dr Ke Prieto Pending Studies/Follow-Up: Instructions / Follow-Up Instructions / Follow-Up MEDICATION CHANGES: 1. New medication: Aspirin 81 mg daily for Cardiovascular prophylaxis 2. Hold hydrochlorthiazide due to syncopal episode FOLLOW UP 1. Follow up with PCP in 1 week . Call for appt date/time 2. Recommend referral to [facility] for cold urticaria 3. Recommend outpatient stress test for cardiovascular risk stratification given your family cardiac history Medication Reconciliation New Medications: Aspirin (Aspirin EC Low Dose) 81 Mg Ectab 81 MG PO QAM for 30 Days Continued Medications: Fenofibrate (Tricor ) 145 Mg Tab 145 MG PO DAILY, TAB Lisinopril (Zestril) 5 Mg Tab 5 MG PO DAILY, TAB Discontinued Medications: Hydrochlorothiazide (Hctz) 25 Mg Tab 25 MG PO DAILY, TAB Admission Information HPI (per Admitting provider): This is a 51 year old male with PMH of hypertension and hyperlipidemia who presents to the ED s/p syncopal episode. Patient is visiting from [facility] and was walking outside in [place] in the cold weather and began to develop hives which started on his low back with associated itching. He took Benadryl and Tagamet around noon. He then began to feel dizzy/ presyncopal so leaned against a wall. The last thing he remembers is stepping forward then he awoke on the ground with police officers and his family surrounding him. He reports being alert/ oriented when he awoke. No seizure like activity reported. He is unsure how long he was down. He sustained a small abrasion on his left yazidi. He states he was nauseous which resolved with Zofran and his BP was low ELDER ASSISTANT. He took his usual HCTZ 25 mg and lisinopril 5 mg this morning. He ate normally today and had 2 beers with lunch. He had a transient R calf cramp today while getting on bed for imaging. He is now feeling asymptomatic. Dizziness and hives are resolved. He denies recent illness, chest pain, SOB, ADAME , palpitations, abdominal pain, vomiting, diarrhea, urinary changes, edema, weight change, VALADEZ, focal weakness or numbness. Patient had a prior syncopal episode approximately 8 years ago with similar presentation when he was outdoors playing tennis in cold weather. At that time he was hospitalized in [facility] and had workup of telemetry monitoring and serial cardiac enzymes which were unremarkable as per his . states he gets hives associated with exposure to cold weather approximately once per year but last syncope was 8 years ago. He denies known history of arrhythmia, CAD, valvular disease, CHF, thyroid disease, DM. Pt has not had an echo or stress test in the past. On presentation BP was borderline in 90s systolic which improved to 120s after 1 liter bolus. Pt was hypothermic and hypoxic on arrival which resolved and is now saturating well on RA. Physical Exam (per Admitting): General Appearance: WD/WN, no apparent distress, + pertinent finding ( pleasant alert 51 y/o male, no distress, at bedside) Head: normocephalic, + pertinent finding (small abrasion left yazidi) Eyes: normal inspection, PERRL, EOMI ENT: hearing grossly normal, pharynx normal Neck: supple, no carotid bruits, trachea midline Respiratory/Chest: lungs clear, normal breath sounds, no respiratory distress, no accessory muscle use Cardiovascular: regular rate, rhythm, no murmur, + pertinent finding ( radial pulses 2+) Abdomen/GI: normal bowel sounds, non tender, soft Extremities/Musculoskelatal: no calf tenderness, no pedal edema Neurologic/Psych: family day care provider II-XII nml as tested, alert, normal mood/affect, oriented x 3, + pertinent finding (no gross motor deficit) Skin: normal color, warm/dry, no rash, + pertinent finding (small abrasion left yazidi) Hospital Course Assessment and Plan SYNCOPE RELATED TO COLD URTICARIA : Hx of cold urticaria and has had multiple episodes of syncope and similar episodes in past. -Work up- CT head unremarkable; CXR unremarkable; elevated d dimer -> CTA chest neg for PE or dissection; EKG ELDER ASSISTANT showed ST 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 in Infero-lateral leads; resolved on EKG in ER; Trop x 3-neg -Continue with ASA, Hold HCTZ till sees family physician ABNORMAL EKG:Changes resolved EKG-ELDER ASSISTANT showed ST depression in Infero-lateral leads; resolved on EKG in ER; Trop x 3-neg. Likely secondary to hypotension and hypothermia noted byEMT at field Changes resolved on EKG done in ED -Echo- Normal, per cardiology. Recommends stress test outpatient given hx of premature CAD. Offered to do it inpatient, but prefers to do it at their facility in [place], [place] from where they are -Continue with ASA, Atorvastatin (home med) -Appreciate cardiology inpus HYPOKALEMIA Replaced PROBABLE PINA -Resolved Cr is 1.6; no baseline creatinine available--> down to 1.40 S/P IVF -Hold HTZ and okay to continue lisinopril -Monitor outpatient HYPERTENSION BP borderline in 90s on arrival to ER; improved to 120s systolic after 1 liter IVF's. Now stable Hold HCTZ and continue with lisinopril Monitor outpatient DYSLIPIDEMIA Continue Tricor ELEVATED TSH TSH 11.5 Free T4 is normal Need to monitor it outpatient DVT PROPHYLAXIS Lovenox SQ DISPOSITION Obs to telemetry Follows with a PCP in [place] area Discussed with at bedside who is a physician Requesting to be discharged SOURAV as have to drive back to [place] to discharge home Total time spent on discharge = 25 minutes This includes examination of the patient, discharge planning, medication reconciliation, and communication with other providers. Discharge Instructions Activity Limitations: resume your previous activity (as tolerated) . Instructions / Follow-Up Instructions / Follow-Up MEDICATION CHANGES: 1. New medication: Aspirin 81 mg daily for Cardiovascular prophylaxis 2. Hold hydrochlorthiazide due to syncopal episode FOLLOW UP 1. Follow up with PCP in 1 week . Call for appt date/time 2. Recommend referral to [facility] for cold urticaria 3. Recommend outpatient stress test for cardiovascular risk stratification given your family cardiac history Current Hospital Diet Patient's current hospital diet: AHA Diet (Heart Healthy) Discharge Diet Recommended Diet: Regular Diet Procedures Procedures Performed: CT CHEST 1. No acute intrathoracic findings 2. No CT evidence of acute pulmonary embolism 3. No CT evidence of aortic dissection 3. No evidence of focal pulmonary consolidation CT HEAD IMPRESSION: No acute intracranial findings CXR No acute disease ECHO- Normal per cardiology (Official report pending) Lipid panel within goal -LDL 90, HDL 28 Pending Studies Studies pending at discharge: no Laboratory Results Lipid Panel Test 01/11/17 02:55 Range/Units Triglycerides Level 111 0-150 mg/dl Cholesterol Level 140 0-200 mg/dl HDL Cholesterol 28 mg/dl Cholesterol/HDL Ratio 5.0 LDL Cholesterol, Calculated 90 mg/dl Medical Emergencies . Who to Call and When: Medical Emergencies: If at any time you feel your situation is an emergency, please call 911 immediately. . Non-Emergent Contact Non-Emergency issues call your: Primary Care Provider . . "Provider Documentation" section prepared by Clarisse Gilmore. VTE Core Measure Inpt VTE Proph given/why not?: Enoxaparin (Lovenox)SQ
[2017-01-11 13:09] VITALS: BP 123/79; PULSE 86; TEMP 36.9; O2SAT 99
--- NOTE | 2017-01-11 14:42 | ECHOCARDIOGRAM REPORT ---
*NOTICE TO RECEIVING [employer] This information is strictly Confidential and protected under [place] law. [place] law prohibits you from making any further disclosure of this information unless further disclosure is expressly permitted by the written consent of the person to whom it pertains or is authorized by law. A general authorization for the release of medical or other information is not sufficient for this purpose. Hospital accepts no responsibility if the information is made available to any other person, INCLUDING THE PATIENT. Interpretation Summary * Name: CHACE POE Study Date: 01/11/2017 08:27 AM BP: 136/75 mmHg * Patient Location: C.2T\S\S241\S\2 HR: 72 * : 1965 (M/d/yyyy) Gender: Male Height: 70 in * Age: 51 yrs Ethnicity: CA Weight: 229 lb * Ordering Physician: Beverley Quinteros * Performed By: Nanette Wills RDCS * * Reason For Study: Syncope * BSA: 2.2 m2 * The study was technically adequate. * There is no comparison study available. * -- Conclusions -- * Left ventricular systolic function is normal. * Ejection Fraction = 65-70%. * The left ventricular wall motion is normal. * Pulse wave TDI of the anterior and posterior mitral annulas demonstrates normal LV relaxation * No significant valvular pathology. Procedure Details * A complete two-dimensional transthoracic echocardiogram was performed (2D, M-mode, Doppler and color flow Doppler). Left Ventricle * The left ventricle is normal in size. * There is no thrombus. * There is normal left ventricular wall thickness. * Ejection Fraction = 65-70%. * Left ventricular systolic function is normal. * The left ventricular wall motion is normal. Right Ventricle * The right ventricle is normal size. * The right ventricular systolic function is normal as assessed by tricuspid annular plane systolic excursion (TAPSE) (normal >1.5 cm). Atria * The left atrial size is normal. * Right atrial size is normal. * There is no evidence of atrial septal defect, but resolution does not allow assessment for a patent foramen ovale. Mitral Valve * The mitral valve is normal. * There is no mitral valve stenosis. * Significant mitral regurgitation is absent. Tricuspid Valve * The tricuspid valve is normal. * There is no tricuspid stenosis. * Significant tricuspid regurgitation is absent. Aortic Valve * The aortic valve is trileaflet. * Aortic stenosis is absent. * There is no significant aortic regurgitation. Pulmonic Valve * The pulmonary valve is not well seen, but the Doppler examination is normal without significant regurgitation or stenosis. Great Vessels * The aortic root and proximal ascending aorta are normal sized. Pericardium/Pleural * There is no pericardial effusion. Great Vessels * Normal inferior vena cava diameter and respiratory variation suggests normal central venous pressure. Left Ventricular Diastolic Function * Pulse wave TDI of the anterior and posterior mitral annulas demonstrates normal LV relaxation MMode 2D Measurements and Calculations IVSd 1.1 cm LVIDd 4.7 cm LVIDs 2.8 cm LVPWd 1.1 cm IVS/LVPW 1.0 FS 40.4 % EDV(Teich) 104.3 ml ESV(Teich) 30.2 ml EF(Teich) 71.0 % EDV(cubed) 106.4 ml ESV(cubed) 22.6 ml EF(cubed) 78.8 % LV mass(C)d 192.5 grams LV mass(C)dI 87.1 grams/m\S\2 SV(Teich) 74.1 ml SI(Teich) 33.5 ml/m\S\2 SV(cubed) 83.8 ml SI(cubed) 37.9 ml/m\S\2 Ao root diam 2.5 cm Ao root area 4.8 cm\S\2 ACS 2.1 cm LA dimension 3.6 cm asc Aorta Diam 3.1 cm LA/Ao 1.5 LVOT diam 2.0 cm LVOT area 3.0 cm\S\2 LVAd ap4 29.0 cm\S\2 LVLd ap4 8.5 cm EDV(MOD-sp4) 80.7 ml EDV(sp4-el) 83.8 ml LVAs ap4 14.4 cm\S\2 LVLs ap4 6.5 cm ESV(MOD-sp4) 28.2 ml ESV(sp4-el) 27.3 ml EF(MOD-sp4) 65.0 % EF(sp4-el) 67.4 % LVAd ap2 28.9 cm\S\2 LVLd ap2 8.2 cm EDV(MOD-sp2) 85.0 ml EDV(sp2-el) 86.3 ml LVAs ap2 15.7 cm\S\2 LVLs ap2 6.8 cm ESV(MOD-sp2) 31.1 ml ESV(sp2-el) 30.7 ml EF(MOD-sp2) 63.4 % EF(sp2-el) 64.5 % LVLd %diff -3.45 % EDV(MOD-bp) 83.2 ml LVLs %diff 5.4 % ESV(MOD-bp) 30.3 ml EF(MOD-bp) 63.5 % SV(MOD-sp4) 52.5 ml SI(MOD-sp4) 23.8 ml/m\S\2 SV(MOD-sp2) 53.9 ml SI(MOD-sp2) 24.4 ml/m\S\2 SV(MOD-bp) 52.9 ml SI(MOD-bp) 23.9 ml/m\S\2 SV(sp4-el) 56.4 ml SI(sp4-el) 25.5 ml/m\S\2 SV(sp2-el) 55.6 ml SI(sp2-el) 25.2 ml/m\S\2 Doppler Measurements and Calculations MV E max jessica 74.7 cm/sec MV A max jessica 64.1 cm/sec MV E/A 1.2 MV dec time 0.18 sec Ao V2 max 124.2 cm/sec Ao max PG 6.2 mmHg Ao max PG (full) 2.5 mmHg PEDRO(V,A) 2.3 cm\S\2 PEDRO(V,D) 2.3 cm\S\2 LV V1 max PG 3.6 mmHg LV V1 max 95.4 cm/sec PA V2 max 100.0 cm/sec PA max PG 4.0 mmHg PA acc slope 374.9 cm/sec\S\2 PA acc time 0.15 sec TR max jessica 253.6 cm/sec PA pr(Accel) 12.3 mmHg
== END 2017-01-11 14:17 | disposition hospice, home (50) ==
LOC: ENRESERVDT → ENRESERVTM → EDBD 14:38 → C.EDC 14:40 → C.2T 18:55
PROVIDERS: ADMIT Hospitalist; ATTEND Internal Medicine
DX: R55 Syncope and collapse (principal); L50.2 Urticaria due to cold and heat; R94.31 Abnormal electrocardiogram [ECG] [EKG]; E87.6 Hypokalemia; R94.4 Abnormal results of kidney function studies; I10 Essential (primary) hypertension; E78.5 Hyperlipidemia, unspecified; R94.6 Abnormal results of thyroid function studies; Z82.49 Family history of ischemic heart disease and other diseases of the circulatory system